=== PATIENT | female | born 1945 | race Caucasian/White ===

== ENCOUNTER → 2016-10-07 | Outpatient (CLI) | payer OTHER ==
[~2016-10-07] MED LIST: ALBENZA200 MG PO; AMLODIPINE BESYL5 MG PO; B-123000 MCG SL; CARDIZEM120 MG PO; FLEET ENEMA EX230 ML PR; FOLIC ACID0.4 MG PO; GAVISCON,GEN1 TABLE1 PO; K2 PLUS D3 TAB1 EACH PO; KELP150 MC1 PO; KLONOPIN0.5 M1 PO; KLOR-CON M2020 MEQ PO; LISINOPRIL2.5 MG PO; NEXIUM40 MG PO; NORVASC5 MG PO; PREVACID30 MG PO; REGLAN10 MG PO; SELENIUM100 MICROG PO; VITAMIN B COMP1 EACH PO; VITAMIN B12-FO1 EACH PO; VITAMIN C500 M1 PO; VITAMIN D3400 UNI2 PO; VITAMIN E400 UNIT PO; XANAX0.25 MG PO; ZINC30 MG PO; [UNRECOGNIZED DRUG - OTHER]; [UNRECOGNIZED DRUG - OTHER] PO
[2016-10-07 08:23] VITALS: BP 152/67
[2016-10-07 11:09] LABS: PROLACTIN 13.6 NG/ML
== END | disposition home or self-care (01) ==
LOC: IVINF 08:16
PROVIDERS: Internal Medicine Endocrinology, Diabetes & Metabolism
DX: R53.83 Other fatigue (principal)
CPT/HCPCS: 80400; 82024 90; 82088 90; 82306; 82533 91; 82607; 82627 90; 83835 90; 84146; 84244 90; 84403; 84439; 84443; 96374 59; J0834

== ENCOUNTER 2018-02-05 17:36 | Emergency (ER) | payer OTHER ==
[~2018-02-05] VITALS: Ht 157.5 cm; Wt 65.1 kg
[2018-02-05 18:56] LABS: HEMATOCRIT 36.1 % (36.0-46.0); HEMOGLOBIN 11.9 G/DL (11.9-15.5); MCH 30.1 PG (29.0-34.0); MCV 91.2 FL (83-99); RBC DIS.WIDTH-CV 14.7 % (11.8-14.6); RBC DIS.WIDTH-SD 49.6 % (39-53); RED BLOOD COUNT 3.96 M/uL (3.80-5.20); WHITE BLOOD COUNT 4.3 K/uL (4.1-10.2)
[2018-02-05 19:09] LABS: ALBUMIN 3.7 G/DL (3.2-4.8); ALKALINE PHOSPHATASE 59 IU/L (3-129); ALT (GPT) 8 IU/L (3-49); AST (GOT) 23 IU/L (2-34); CHLORIDE 108 MEQ/L (99-109); CREATININE 0.7 MG/DL (0.6-1.3); GFR ESTIMATE (CALCULATED) > 59 mL/min/; GLUCOSE 90 mg/dL (70-99); LIPASE 28 U/L (1.0-51.0); POTASSIUM 4.3 MEQ/L (3.7-5.4); SODIUM 138 MEQ/L (136-147); TOTAL BILIRUBIN 0.3 MG/DL (0.0-1.0); TOTAL PROTEIN 6.1 G/DL (6.4-8.3); UREA NITROGEN (BUN) 14 mg/dL (9-23)
[2018-02-05 19:15] LABS: BASOPHIL (%) 0.7 % (0-1); EOSINOPHIL (%) 1.6 % (0-5); EOSINOPHIL COUNT 0.1 K/uL (0-0.3); IMMATURE GRANULOCYTE (%) 0.2 % (0.0-0.7); LYMPHOCYTE (%) 23.7 % (15-42); MONOCYTE (%) 7.9 % (3-12); MONOCYTE COUNT 0.3 K/uL (0-0.8); NEUTROPHIL (%) 65.9 % (45-76); NEUTROPHIL COUNT 2.8 K/uL (1.8-6.4)
[2018-02-05 19:17] LABS: APPEARANCE CLEAR ((CLEAR)); BILIRUBIN NEGATIVE; BLOOD NEGATIVE; COLOR YELLOW ((YELLOW)); GLUCOSE (STRIP) NEGATIVE; KETONES NEGATIVE; LEUKOCYTES TRACE; NITRITE NEGATIVE; PROTEIN (STRIP) NEGATIVE; SPECIFIC GRAVITY 1.004 (1.000-1.030); UROBILINOGEN 0.2 MG/DL (0.2-1.0)
[2018-02-05 19:20] LABS: BACTERIA NONE SEEN /HPF; EPITHELIAL CELLS RARE /HPF; MUCUS NONE SEEN /LPF; RED BLOOD CELLS 0-5 /HPF (0-5); UCUL ADDED? NO; WHITE BLOOD CELLS 0-5 /HPF (0-5)
[2018-02-05 19:40] LABS: HEMATOLOGY COMMENT 1 SN; PLAT.SUFFICIENCY ADEQUATE; PLATELET COUNT UNABLE TO REPORT K/uL (156-360)
[2018-02-05] MEDS ORDERED: KRISTALOSE20 GM PO (19:40)
[2018-02-05 20:08] VITALS: BP 175/71
== END 2018-02-05 20:09 | disposition home or self-care (01) ==
LOC: EME 17:36
PROVIDERS: Emergency Medicine
DX: R10.9 Unspecified abdominal pain (principal); K59.09 Other constipation; I10 Essential (primary) hypertension; Z85.9 Personal history of malignant neoplasm, unspecified; Z90.49 Acquired absence of other specified parts of digestive tract; Z88.0 Allergy status to penicillin; Z88.2 Allergy status to sulfonamides
CPT/HCPCS: 80053; 81003; 82140; 83690; 85025; 99281; 99284